=== PATIENT | female | born 1930 | race African-American/Black ===

== ENCOUNTER → 2018-02-21 | Day surgery (SDC) | payer MEDICARE ==
[2018-02-20 11:06] LABS: BASOPHILS % 0.2 % (0.0-1.0); EOSINOPHILS # (AUTO) 0.1 (0.0-0.4); EOSINOPHILS % 2.2 % (0.0-6.0); HEMATOCRIT 41.2 % (34.2-44.1); HEMOGLOBIN 13.7 g/dL (12.0-16.0); LYMPHOCYTES # (AUTO) 1.6 (1.0-3.2); LYMPHOCYTES % 31.9 % (18.0-39.1); MEAN CORPUSCULAR HEMOGLOBIN 31.3 pg (28-32); MEAN CORPUSCULAR HGB CONC 33.3 g/dL (31-35); MEAN CORPUSCULAR VOLUME 94.1 fL (81-99); MONOCYTES # (AUTO) 0.6 (0.2-0.8); MONOCYTES % 10.9 % (4.4-11.3); NEUTROPHILS # (AUTO) 2.8 (2.1-6.9); NEUTROPHILS % 54.4 % (38.7-80.0); PLATELET COUNT 300 x10e3/uL (140-360); RED BLOOD COUNT 4.38 x10e6/uL (3.6-5.1); RED CELL DISTRIBUTION WIDTH 12.8 % (11.7-14.4)
[2018-02-20 11:25] LABS: ALANINE AMINOTRANSFERASE 12 IU/L (0-55); ALBUMIN 3.8 g/dL (3.5-5.0); ALKALINE PHOSPHATASE 79 IU/L (40-150); ANION GAP 14.3 mmol/L (8-16); BLOOD UREA NITROGEN 16 mg/dL (7-26); BUN/CREATININE RATIO 17 (6-25); CARBON DIOXIDE 29 mmol/L (22-29); CHLORIDE 108 mmol/L (98-107); CHOLESTEROL 243 MD/DL (0-199); CREATININE, SERUM 0.94 mg/dL (0.57-1.11); EST GLOMERULAR FILTRATION RATE > 60 ML/MIN (60-); GLUCOSE 96 mg/dL (74-118); HDL CHOLESTEROL 49 MG/DL (40-60); LDL CHOLESTEROL 144 MG/DL (60-130); POTASSIUM 5.3 mmol/L (3.5-5.1); SODIUM 146 mmol/L (136-145); TRIGLYCERIDES 251 MG/DL (0-149)
[2018-02-21] VITALS (8 sets, daily range): BP systolic 160–177; BP diastolic 91–110
[~2018-02-21] MED LIST: ALPRAZOLAM 0.5 MG TAB ONE; BYSTOLIC10 MG PO; CEFAZOLIN SOD 1 GM VIAL ONE; CLONAZEPAM1 MG PO; DIPHENHYDRAMINE HCL 25 MG CAP ONE; FENTANYL CITRATE/PF 100MCG/2 ML INJ ONE; GABAPENTIN300 MG PO; HEPARIN SOD (PORCINE) 1000 UNIT/ML 30ML ONE; HEPARIN SOD/SOD CHLORIDE 2,000 ML ONE; IOPAMIDOL 300MG/ML 100 ML INFUS..BTL IV ONE; LIDOCAINE HCL 2% LOCAL 20 ML VIAL ONE; MIDAZOLAM HCL 2 MG/2 ML VIAL ONE; NITROGLYCERIN/D5W 200 MCG/ML 250 ML ONE; PRASUGREL 10 MG TAB ONE; SODIUM CHLORIDE 0.9% 1000ML 0 ML ONE; SODIUM CHLORIDE 0.9% 1000ML 1,000 ML ONE; ULTRAM50 MG PO; VERAPAMIL HCL 2.5 MG/ML 2 ML VIAL ONE
--- NOTE | 2018-02-22 07:15 | Operative Report ---
DATE OF PROCEDURE: February 21, 2018 INDICATIONS: Peripheral arterial disease and claudication. PROCEDURES PERFORMED 1. Abdominal aorta catheter placement and abdominal aortogram. 2. Selective third-order catheter placement from the left femoral artery to the right superficial femoral artery. 3. Additional third-order catheter placement from the right femoral artery to the left superficial femoral artery. 4. Atherectomy and drug-coated balloon angioplasty of the right femoral artery. 5. Secondary thrombectomy of the right femoral artery. 6. Deployment of bilateral groin Perclose. COMPLICATIONS: None. RECOMMENDATIONS: Evaluation for claudication of the right leg followed by staged intervention on the left femoral artery for moderate stenosis. Access obtained in left femoral artery, as well as the right femoral artery. Abdominal aortogram demonstrated mild disease of the abdominal aorta and proximal femoral arteries bilaterally. Iliacs had frail disease. The catheter was then advanced from the left femoral artery to the right superficial femoral artery, as well as from the right femoral artery to the left superficial artery. The left femoral artery had 50% to 70% distal stenosis. Right femoral artery distally was completely occluded. Infrapopliteal vessels are not well visualized. Additional third-order catheter placement from the popliteal and posterior peroneal arteries demonstrated 2-vessel runoff via the posterior tibial and peroneal arteries on the left, and a single vessel runoff via the peroneal artery on the right. A decision was made to intervene on the right femoral artery. The patient received 8000 units of intra-arterial heparin for anticoagulation. The sheath was exchanged to a 45 cm, 6-Chinese sheath advanced from the left femoral artery to the right superficial femoral artery. The lesion was crossed with a Glidewire. Orbital atherectomy using a 2-mm [place] was performed. Large amounts of visible thrombus was seen post atherectomy for which manual aspiration secondary thrombectomy was needed. Balloon angioplasty with a 6 mm drug-coated balloon resulted in excellent single vessel runoff, less than 10% residual stenosis. No complications. Both groins were repaired using Perclose. Patient was discharged home same day. Job#: [id number]
== END | disposition home or self-care (01) ==
LOC: CATH LAB 13:05
PROVIDERS: ATTEND Internal Medicine Interventional Cardiology
DX: I70.213 Atherosclerosis of native arteries of extremities with intermittent claudication, bilateral legs (principal); I77.1 Stricture of artery; Z01.812 Encounter for preprocedural laboratory examination
CPT/HCPCS: 36415; 37225; 80053; 80061; 85025; 85347; C1724; C1725 ×2; C1769; C1887; J0690; J1644; J2001; J2250; J7030; Q9967; 37186; 75716; 75774